=== PATIENT | male | born 1950 | race African-American/Black ===

== ENCOUNTER 2018-07-30 07:07 | Emergency (ER) | payer SELFPAY ==
[~2018-07-30] VITALS: Ht 180.3 cm; Wt 76.7 kg
[2018-07-30 07:17] VITALS: Ht 180.3 cm; Wt 76.7 kg
[2018-07-30 07:40] VITALS: BP 134/76
== END 2018-07-30 07:40 | disposition home or self-care (01) ==
LOC: ED 07:07
DX: Z76.0 Encounter for issue of repeat prescription (principal); I10 Essential (primary) hypertension; Z88.0 Allergy status to penicillin

== ENCOUNTER 2020-12-01 12:48 | Emergency (ER) | payer OTHER, SELFPAY ==
[~2020-12-01] VITALS: Ht 175.3 cm; Wt 76.7 kg
[2020-12-01 13:01] VITALS: Ht 175.3 cm; Wt 76.7 kg
[2020-12-01 14:29] LABS: PLATELET COUNT 264 x10^3mcL (152-348)
[2020-12-01 14:30] LABS: RED CELL DISTRIBUTION WIDTH 15.3 % (12.1-16.2)
[2020-12-01 14:44] LABS: CALCIUM 9.5 mg/dL (8.5-10.1); CARBON DIOXIDE 19.5 mmol/L (21-32); CHLORIDE SERUM 95 mmol/L (98-107); CREATININE SERUM 1.1 mg/dL (0.7-1.3); GFR1 > 60 mL/min; GLUCOSE SERUM 110 mg/dL (74-106); POTASSIUM SERUM 3.7 mmol/L (3.5-5.1); SODIUM SERUM 131 mmol/L (136-145)
[2020-12-01 14:45] LABS: ALBUMIN 3.5 g/dL (3.4-5.0); ALKALINE PHOSPHATASE 114 U/L (46-116); ALT/SGPT 14 U/L (16-63); AST/SGOT 24 U/L (15-37); BILIRUBIN TOTAL 0.2 mg/dL (0.20-1.00); TOTAL PROTEIN, SERUM 8.8 g/dL (6.4-8.2)
[2020-12-01 15:01] LABS: BAND NEUTROPHIL 0 % (0-10); BASOPHIL 0 % (0-2); MONOCYTE 3 % (0-7); SEGMENTED NEUTROPHILS 69 % (37-75)
[2020-12-01 15:03] LABS: PLATELET MORPHOLOGY PLATELETS NORMAL; rbc morphology (normal/abnorm) NORMAL (NORMAL)
[2020-12-01] MEDS ORDERED: PROAIR HFA8.5 GM INH (16:08)
[2020-12-01] MEDS ORDERED: ZITHROMAX Z-PA250 MG PO (16:08)
[2020-12-01] MEDS ORDERED: ZOFRAN4 M3 PO (16:08)
[2020-12-01] MEDS ORDERED: CEFPODOXIME PR200 MG PO (16:12)
[2020-12-01 18:15] VITALS: BP 130/80
== END 2020-12-01 18:15 | disposition home or self-care (01) ==
LOC: ED 12:48
PROVIDERS: Emergency Medicine
DX: J18.9 Pneumonia, unspecified organism (principal); E87.1 Hypo-osmolality and hyponatremia; Z20.828 Contact with and (suspected) exposure to other viral communicable diseases
CPT/HCPCS: 83880; J0456; J0696; J2405; J7030; J7050; U0003